=== PATIENT | male | born 1955 | race Caucasian/White ===

== ENCOUNTER 2022-09-19 13:12 | Outpatient (NON) | payer MEDICARE, SELFPAY ==
[2022-09-19 14:09] LABS: Crystals Synovial Fluid None Seen (None Seen)
[2022-09-19 14:27] LABS: Source Synovial Fluid Synovial fluid
[2022-09-19 14:28] LABS: Appearance Synovial Fluid Clear (Clear); Color Synovial Fluid Yellow (Colorless); Lymphocytes Synovial Fluid 33 %; Macrophages Synovial Fluid 16 %; Monocytes Synovial Fluid 38 %; Neutrophils Synovial Fluid 3 % (0-25); Nucleated Cell Synovial Fluid 176 /uL (0-200); Other Cells Synovial Fluid 10 %
[2022-09-30 12:14] LABS: RBC Synovial Fluid < 2000 /uL (0-0)
== END 2022-09-19 13:13 | disposition home or self-care (01) ==
LOC: ANHLAB 13:15
PROVIDERS: PCP Internal Medicine; Visit Provider Orthopaedic Surgery
DX: M25.462 Effusion, left knee (principal); M17.12 Unilateral primary osteoarthritis, left knee
CPT/HCPCS: 89051; 89060